=== PATIENT | male | born 1955 | race Caucasian/White ===

== ENCOUNTER 2018-10-07 08:44 | Day surgery (SDC) | payer OTHER ==
--- NOTE | 2018-09-30 09:44 | RADIOLOGY REPORT (SQ) ---
EXAM DESCRIPTION: CHEST PA/LATERAL COMPLETED DATE/TIME: 09/30/2018 9:30 am REASON FOR STUDY: PRE-OP; COUGH COMPARISON: None. EXAM PARAMETERS: NUMBER OF VIEWS: two views TECHNIQUE: Digital Frontal and Lateral radiographic views of the chest acquired. RADIATION DOSE: NA LIMITATIONS: none FINDINGS: LUNGS AND PLEURA: No opacities, masses or pneumothorax. No pleural effusion. MEDIASTINUM AND HILAR STRUCTURES: No masses or contour abnormalities. HEART AND VASCULAR STRUCTURES: Heart normal size. No evidence for failure. BONES: No acute findings. HARDWARE: Spinal stimulator electrodes. OTHER: No other significant finding. IMPRESSION: NO SIGNIFICANT RADIOGRAPHIC FINDING IN THE CHEST. TECHNICAL DOCUMENTATION: JOB ID: [id number] [employer]- All Rights Reserved Reading location - IP/workstation name: [email or web address]
[2018-09-30 10:09] LABS: HEMATOCRIT 49.3 % (37.9-51.0); HEMOGLOBIN 17.3 g/dL (13.5-17.0); MEAN CORPUSCULAR HEMOGLOBIN 30.5 pg (27.0-33.4); MEAN CORPUSCULAR VOLUME 87 fl (80-97); PLATELET COUNT 226 10^3/uL (150-450); RED BLOOD COUNT 5.66 10^6/uL (4.35-5.55); RED CELL DISTRIBUTION WIDTH 13.2 % (11.5-14.0); WHITE BLOOD COUNT 8.4 10^3/uL (4.0-10.5)
[2018-09-30 10:36] LABS: ANION GAP 8 (5-19); BLOOD UREA NITROGEN 21 mg/dL (7-20); CALCIUM 9.7 mg/dL (8.4-10.2); CARBON DIOXIDE 30 mmol/L (22-30); CHLORIDE 102 mmol/L (98-107); GLUCOSE 103 mg/dL (75-110); POTASSIUM 4.6 mmol/L (3.6-5.0); SODIUM 140.4 mmol/L (137-145)
--- NOTE | 2018-09-30 22:23 | EKG REPORT ---
SEVERITY:- BORDERLINE ECG - SINUS RHYTHM ATRIAL PREMATURE COMPLEX BORDERLINE LEFT AXIS DEVIATION : Confirmed by: Juan Diego Bush MD 30-Sep-2018 22:22:23
[~2018-10-07 08:44] MED LIST: ACETAMINOPHEN 325 MG TABLET PO PRN; IBUPROFEN 800 MG in NORMAL SALINE 250 ML IV PRN; LACTATED RINGERS 1000 ML IV PRN; LIDOCAINE 0.5% INJ-PF (5 MG/ML) 50 ML SDV SUBCUT PRN; METRONIDAZOLE 500 MG/NS RTU 500 MG/100 ML RTUPB IV PRN; PREGABALIN 50 MG CAPSULE PO PRN
[2018-10-07] MEDS ORDERED: METRONIDAZOLE 500 MG/NS RTU 500 MG/100 ML RTUPB IV ONE (08:50)
[2018-10-07] MEDS ORDERED: PREGABALIN 50 MG CAPSULE ONE (08:50)
[2018-10-07] MEDS ORDERED: ACETAMINOPHEN 325 MG TABLET ONE (08:50)
[2018-10-07] MEDS ORDERED: LIDOCAINE 2% JELLY 5 ML TUBE ONE (11:58)
[2018-10-07] MEDS ORDERED: BACITRACIN ZINC OINTMENT 15 GM ONE (11:58)
[2018-10-07] MEDS ORDERED: BUPIVACAINE INJ/PF LIPOSOME/PF 266 MG/20 ML SDV ONE (11:58)
[2018-10-07] MEDS ORDERED: LIDOCAINE 2% JELLY 30 ML TUBE ONE (11:59)
[2018-10-07] MEDS ORDERED: FENTANYL CITRATE INJ/PF 250 MCG/5 ML AMPULE ONE (12:05)
[2018-10-07] MEDS ORDERED: PROPOFOL INJ 200 MG/20 ML VIAL IV ONE (12:05)
[2018-10-07] MEDS ORDERED: MIDAZOLAM 2 MG/2 ML INJ ONE (12:05)
[2018-10-07] MEDS ORDERED: LIDOCAINE 2% INJ-PF (20 MG/ML) 2 ML AMPUL ONE (13:13)
[2018-10-07] MEDS ORDERED: ONDANSETRON HCL INJ/PF 4 MG/2 ML SDV ONE (13:13)
[2018-10-07] MEDS ORDERED: ROCURONIUM BROMIDE INJ 50 MG/5 ML VIAL IV ONE (13:13)
[2018-10-07] MEDS ORDERED: GLYCOPYRROLATE 1 MG/5 ML SYRINGE ONE (13:13)
[2018-10-07] MEDS ORDERED: NEOSTIGMINE METHYLSULFATE 10 MG/10 ML VIAL ONE (13:13)
[2018-10-07] MEDS ORDERED: DEXAMETHASONE SOD PHOSPHATE INJ 4 MG/1 ML VIAL ONE (13:13)
[2018-10-07] MEDS ORDERED: PROMETHAZINE HCL INJ 25 MG/1 ML VIAL IV PRN ×2 (13:17)
[2018-10-07] MEDS ORDERED: OXYCODONE-ACETAMINOPHEN 5-325 MG TABLET PO PRN ×2 (13:17)
[2018-10-07] MEDS ORDERED: MORPHINE SULFATE 10 MG/ML INJ IV PRN (13:17)
[2018-10-07] MEDS ORDERED: FENTANYL CITRATE INJ/PF 100 MCG/2 ML AMPUL IV PRN ×3 (13:17)
[2018-10-07] MEDS ORDERED: MEPERIDINE HCL/PF INJ 25 MG/1 ML DISP.SYRIN IV PRN (13:17)
[2018-10-07] MEDS ORDERED: DIPHENHYDRAMINE HCL 50 MG/ML VIAL IV PRN (13:17)
--- NOTE | 2018-10-07 13:47 | Discharge Summary ---
Discharge Summary (SDC) - Discharge Final Diagnosis: Enlarged internal and external hemorrhoids, right posterior and left lateral columns. Date of Surgery: 10/07/18 Discharge Date: 10/07/18 Condition: Stable Treatment or Instructions: Discharge home. Diet as tolerated. Activity: Nonstrenuous. [place] 10/325 mg p.o. every 6 hours as needed for pain. Ibuprofen 800 mg p.o. 3 times daily with meals. Fiber and stool softeners twice daily. 5% lidocaine ointment to rectum 3 times daily. Neosporin ointment to rectum 3 times daily. Sitz baths twice daily and after bowel movements. Follow-up with me in 7 to 10 days. Referrals: JADA SURESH MD [Primary Care Provider] - Discharge Diet: As Tolerated Respiratory Treatments at Home: Deep Breathing/Coughing, Incentive Spirometer Discharge Activity: Balance Activity w/Rest Home Care Assistance: None Needed Report the Following to Your Physician Immediately: Shortness of Breath, Nausea, Vomiting, Increase in Pain, Fever over 101 Degrees, Unusual Bleeding, Redness
--- NOTE | 2018-10-07 13:53 | Operative Report ---
Nonrecallable Operative Report DATE OF SURGERY: 10/07/18 PREOPERATIVE DIAGNOSIS: Enlarged internal and external hemorrhoids, right posterior and left lateral columns. POSTOPERATIVE DIAGNOSIS: Same as above. OPERATION: Two-column Surgical hemorrhoidectomy, right posterior and left lateral columns. SURGEON: POOL HOROWITZ CONTACT WORKER LITHOGRAPHY: NEREYDA VAZQUEZ ANESTHESIA: GA TISSUE REMOVED OR ALTERED: Right posterior and left lateral hemorrhoid columns COMPLICATIONS: None apparent ESTIMATED BLOOD LOSS: Minimal PROCEDURE: Drains/implants: None. Procedure detail: After informed consent was obtained, the patient was brought to the operating room and laid in the prone/jackknife position. The area of the rectum/anus was prepped and draped in a normal sterile fashion. An anal block was created with 20 cc of Exparel. A Hill-Caraballo retractor was inserted into the rectum. Hemorrhoids were enlarged in the right posterior and left lateral columns. The right anterior column appeared normal. With the use of the Hill- Caraballo, the hemorrhoids were elevated and divided at their base using electrocautery. The resultant defect was closed using 3-0 chromic suture in simple running fashion. Great care was taken to reapproximate mucosa to mucosa, anoderm to anoderm, and skin to skin. Once this was performed in the left lateral column, attention was turned to the right posterior column. In similar fashion, the hemorrhoid was resected, and the defect was closed. Once this was completed, the anus was inspected. There was no evidence of stenosis. There was no active bleeding. A dressing was placed, and the procedure was concluded. All sponge, instrument, and needle counts were correct. Condition: Stable. Nereyda Vazquez PA-C was scrubbed and present the entirety of the procedure. She assisted with all portions of the procedure including creation of the anal block, insertion of the retractor, removal of the hemorrhoid, closure of the defect, placement of the dressing.
[2018-10-07 16:16] VITALS: BP 144/96
== END 2018-10-07 15:30 | disposition home or self-care (01) ==
LOC: OROUT 08:44
PROVIDERS: ATTEND Surgery
DX: K64.2 Third degree hemorrhoids (principal); K64.4 Residual hemorrhoidal skin tags; I10 Essential (primary) hypertension
CPT/HCPCS: 93005; 36415; 85027; 80048; 88304 ×2; 71046; 93010; 46260; J2250; J3490 ×6; J1100; J3010; J2710; J2405; J7050; J2704; C9290; J1741; 902